=== PATIENT | female | born 1980 | race Caucasian/White ===

== ENCOUNTER 2020-07-28 15:49 | Emergency (ER) | payer BC, SELFPAY ==
[~2020-07-28] VITALS: Ht 172.7 cm; Wt 81.6 kg
[2020-07-28 16:44] VITALS: BP_SYST 108
--- NOTE | 2020-07-28 17:10 | NUR ---
Pt brought by self,A&Ox4, pt present to ER with covid positive result, c/o cough and SOB, respirations even and unlabored, cap refill <3.
--- NOTE | 2020-07-28 17:20 | NUR ---
Dr Heredia evaluating patient at bedside
[2020-07-28 18:39] VITALS: BP_SYST 108
--- NOTE | 2020-07-28 18:41 | NUR ---
Patient given written and verbal discharge instructions and verbalizes understanding. ER MD discussed with patient the results and treatment provided. Patient in stable condition. ID arm band removed. Rx of Vit D3 ,Vit C, Zinc, Vit B12, Azithromycin, Prednisone, Promethazine given. Patient educated on pain management and to follow up with PMD. Pain Scale 0/10 . Opportunity for questions provided and answered. Medication side effect fact sheet provided.
== END 2020-07-28 18:39 | disposition home or self-care (01) ==
LOC: SED 15:49
DX: U07.1 COVID-19 (principal); J18.9 Pneumonia, unspecified organism; R00.0 Tachycardia, unspecified
CPT/HCPCS: 71045; 93005; 99283

== ENCOUNTER 2020-09-24 07:39 | Emergency (ER) | payer BC, SELFPAY ==
[~2020-09-24] VITALS: Ht 172.7 cm; Wt 86.2 kg
[2020-09-24 07:40] VITALS: BP_SYST 127
[2020-09-24] MEDS: NACL 0.9% 1,000 ML IV ONE (08:20)
[2020-09-24] MEDS: MORPHINE 4 MG/ML INJ. SYRINGE IVP ONE (08:20)
[2020-09-24] MEDS: ONDANSETRON HCL 4 MG/2 ML VIAL IVP ONE (08:25)
[2020-09-24 08:28] LABS: BILIRUBIN,URINE NEGATIVE (NEGATIVE); BLOOD, URINE 1+ (NEGATIVE); CLARITY/URINE SL CLOUDY (CLEAR); COLOR,URINE YELLOW (YELLOW); GLUCOSE,URINE NEGATIVE (NEGATIVE); KETONES,URINE NEGATIVE (NEGATIVE); LEUKOCYTE ESTERASE ,URINE NEGATIVE (NEGATIVE); NITRITE, URINE NEGATIVE (NEGATIVE); PROTEIN URINE 1+ (NEGATIVE); UROBILINOGEN,URINE 0.2 (0.2-1.0)
[2020-09-24 08:28] LABS: BASOPHILS % (AUTO) 0.6 % (0.0-2.0); EOSINOPHILS % (AUTO) 0.3 % (0.0-4.0); HEMATOCRIT 31.1 % (36-48); HEMOGLOBIN 9.8 g/dL (12.0-16.0); LYMPHOCYTES # (AUTO) 0.6 K/uL (1.0-5.5); LYMPHOCYTES % (AUTO) 9.2 % (20.5-51.5); MEAN CORPUSCULAR HEMOGLOBIN 23 pg (27-31); MEAN CORPUSCULAR HGB CONC 31 % (32-36); MONOCYTES # (AUTO) 0.5 K/uL (0.0-1.0); MONOCYTES % (AUTO) 7.3 % (1.7-9.3); NEUTROPHILS # (AUTO) 5.1 K/uL (1.8-7.7); NEUTROPHILS % (AUTO) 82.6 % (40.0-70.0); PLATELET COUNT (AUTO) 337 K/uL (130-430); RED BLOOD CELL COUNT(AUTO) 4.23 MIL/uL (4.2-6.2); WHITE BLOOD COUNT (AUTO) 6.2 K/uL (4.8-10.8)
[2020-09-24 08:30] LABS: MEAN CORPUSCULAR VOLUME 74 fL (79.0-98.0)
[2020-09-24 08:39] LABS: CALCIUM 8.5 mg/dL (8.4-11.0); CREATININE 0.72 mg/dL (0.55-1.30); POTASSIUM 3.5 mmol/L (3.5-5.1)
[2020-09-24 08:51] LABS: ALBUMIN 3.8 g/dL (3.4-4.8); TOTAL BILIRUBIN 0.2 mg/dL (0.0-1.0)
[2020-09-24 08:52] LABS: BACTERIA,URINE FEW /HPF (None Seen); WBC,URINE 0-3 /HPF (0-3)
[2020-09-24] MEDS ORDERED: NAPR-1172 PO (09:49)
[2020-09-24 09:54] VITALS: BP_SYST 127
== END 2020-09-24 09:55 | disposition home or self-care (01) ==
LOC: SED 07:39
DX: K80.20 Calculus of gallbladder without cholecystitis without obstruction (principal)
CPT/HCPCS: 36415; 76700; 80053; 81000; 82150; 83690; 85025; 96361; 96374; 96375; 99284; J7030

== ENCOUNTER 2020-12-25 18:52 | Emergency (ER) | payer BC, SELFPAY ==
[~2020-12-25] VITALS: Ht 175.3 cm; Wt 90.7 kg
[~2020-12-25 18:52] MED LIST: NAPR-1172 PO
[2020-12-25 19:05] VITALS: BP_SYST 119
[2020-12-25 21:54] VITALS: BP_SYST 123
== END 2020-12-25 21:54 | disposition home or self-care (01) ==
LOC: SED 18:52
DX: M79.662 Pain in left lower leg (principal); M79.661 Pain in right lower leg; Z79.899 Other long term (current) drug therapy
CPT/HCPCS: 93970; 99284